=== PATIENT | female | born 1940 | race Caucasian/White ===

== ENCOUNTER 2017-01-06 17:49 | Emergency (ER) | payer MEDICARE, BC ==
[2017-01-06 18:01] VITALS: BP 119/77
--- OUTSIDE RECORDS SUMMARY | 2017-01-06 18:20 | XMS REPORT | Continuity of Care Document ---
:1940 Author Organization [facility] ([facility]) [place] [address] Phone [phone] Care Team Providers Name Role Phone Felipa Bustillo Primary Care Provider [phone] Source Comments This disclosure is being made pursuant to the Care Everywhere program, applicable federal and state laws, and may not contain all informaitonavailable regarding this patient.[facility] ([facility]) Active Allergies and Adverse Reactions No Known Allergies Current Medications Prescription Sig. Disp. Refills Start Date End Date Status verapamil 120 mg tablet Take 120 mg by Active mouth 3 times daily. levothyroxine 75 mcg Take 75 mcg by Active tablet mouth every morning before breakfast. Active Problems Problem Noted Date Breast cancer, left breast 10/18/2012 Social History Tobacco Use Types Packs/Day Years Used Date Never Assessed Last Filed Vital Signs Vital Sign Reading Time Taken Blood Pressure 162/95 10/14/2014 9:45 AM [employer] Pulse 74 10/14/2014 9:45 AM [employer] Temperature 36.9 C (98.4 F) 10/14/2014 9:45 AM [employer] Respiratory Rate 16 10/14/2014 9:45 AM [employer] Height - - Weight 91.173 kg (201 lb) 10/14/2014 9:45 AM [employer] Body Mass Index - - Oxygen Saturation 94% 10/14/2014 9:45 AM [employer] Plan of Care Health Maintenance Due Date Last Done Comments Hepatitis B Vaccine (1 of 3 - Primary Series) 1940 Tdap Vaccine 1953 Lipid Disorder Screening 1960 Td Vaccine 1960 Mammogram 1982 Colonoscopy 09/12/1992 Zoster Vaccine 2002 Osteoporosis Screening (DXA Bone Density) 2007 Pneumococcal Vaccine (1 of 2 - PCV13) 2007 Influenza Vaccine: Seasonal (#1) 05/31/2016 Results from Last 3 Months Not on file
[2017-01-06] MEDS ORDERED: DIPHTH,PERTUSS(ACELL),TET VAC 0.5 ML VIAL IM ONE ×2 (18:27→18:31)
--- NOTE | 2017-01-06 18:40 | ERNOTE ---
Medical Problem HPI - Narrative Date of Service: 01/06/17 - General Chief Complaint: Laceration Time Seen by Provider: 01/06/17 18:14 Source: patient Exam Limitations: no limitations - Immun/Allergies/Home Medications Immunizations: IMMUNIZATION HX History of Influenza Vaccine Yes Hx Pneumococcal Vaccination Yes Allergies/Adverse Reactions: Allergies codeine [Codeine] Allergy (Intermediate, Verified 01/06/17 18:01) itching morphine Allergy (Intermediate, Verified 01/06/17 18:01) Hives hydrocodone bitartrate [From Vicodin] Adverse Reaction (Intermediate, Verified 01/06/17 18:01) nightmares propoxyphene napsylate [From Darvocet-N 100] Adverse Reaction (Unknown, Verified 01/06/17 18:01) Nightmares Home Medications: HOME MEDICATIONS Tramadol HCl 50 mg PO BID PRN 11/06/12 [Last Taken 11/06/12 15:00 50mg] ALPRAZolam [Xanax] 0.25 mg PO Q6H PRN 05/20/14 [Last Taken Unknown] Levothyroxine Sodium [Synthroid] 25 mcg PO 0700 05/20/14 [Last Taken Unknown] Meloxicam 7.5 mg PO DAILY 05/20/14 [Last Taken Unknown] Metoprolol Tartrate [Lopressor] 25 mg PO DAILY 01/06/17 [Last Taken Unknown] - History of Present History Narrative: A 76-year-old female presented to the emergency room with a 2 cm laceration to the back of her left hand below her pinky and her ring finger knuckle. States she cut her hand and a food chopper. Date (Duration): 01/06/17 Timing: constant Severity: mild Modifying Factors - (Improves): Present: rest Modifying Factors - (Worsens): Present: movement Review of Systems - Review of Systems Constitutional: Present: no symptoms reported EYE: Present: no symptoms reported ENT: Present: no symptoms reported Respiratory: Present: no symptoms reported Cardiology: Present: no symptoms reported Gastrointestinal/Abdominal: Present: no symptoms reported Genitourinary: Present: no symptoms reported Musculoskeletal: Present: no symptoms reported Skin: Present: See HPI Neurological: Present: no symptoms reported Endocrine: Present: no symptoms reported Hematologic/Lymphatic: Present: no symptoms reported Psych: Present: no symptoms reported - Patient's Past Medical History Patient History - Medical: Anxiety Patient History - Cardiac/Respiratory: Hypertension, Hyperlipidemia, Myocardial Infarction Patient History - Cancer: Breast Patient History - Surgical Procedures: Cardiac stent, Hysterectomy, Total Knee Replacement Patient History - Other: None - Social History Living Situations: home Psych History: Hx of Anxiety Smoking Status: Former smoker - Immunizations Hx Pneumococcal Vaccination: Yes History of Influenza Vaccine: Yes Physical Exam - Physical Exam General Appearance: Present: wd/wn Ears, Nose, Throat: Present: normal ENT inspection Neck: Present: normal inspection Respiratory: Present: no respiratory distress Cardiovascular/Chest: Present: regular rate, rhythm Gastrointestinal/Abdominal: Present: normal bowel sounds Back Exam: Present: normal inspection Extremity Exam: Present: extremity edema - left arm/hand lymph edema, this is normal for patient. Neurological Exam: Present: oriented, normal mood/affect, no motor/sensory deficits Skin Exam: Present: normal color, warm/dry ED Progress - Vital Signs Patient's Vital Signs:: I have reviewed the patient's vital signs. Vital Signs: Vital Signs 01/06/17 17:54 Temperature 37.0 C Pulse Rate 67 Respiratory 14 Rate Blood Pressure 119/77 O2 Sat by Pulse 96 Oximetry - Progress/Reassessment Chief Complaint: Laceration Procedures Left Distal Hand I & D Prep: betadine prep Length of Repair/Wound (cm): 2 - cm Wound's Depth/Shape: superficial Wound Explored: clean Wound Repaired With: Dermabond Layer Closure: Simple Wound Dressing: sterile dressing applied Complications: Pt amrit procedure well Departure - Departure Clinical Impression: Laceration of hand without complication, excluding fingers Qualifiers: Encounter type: initial encounter Laterality: left Qualified Code(s): S61.412A - Laceration without foreign body of left hand, initial encounter Disposition: Home self-care Condition: Critical Instructions: Tissue Adhesive Wound Care, Laceration Care, Adult, [id number] Additional Instructions: continue home medications. Follow up with Primary care doctor in 3 days for follow up. Return if site starts to bleed or if new symptoms develop. Referrals: Felipa Bustillo MD [Primary Care Provider] -
== END 2017-01-06 18:40 | disposition home or self-care (01) ==
LOC: ER 17:49
PROC: 0HQGXZZ Repair Left Hand Skin, External Approach (ICD-10-PCS; principal; 2017-01-06)
DX: S61.412A Laceration without foreign body of left hand, initial encounter (principal); X58.XXXA Exposure to other specified factors, initial encounter; Y93.G3 Activity, cooking and baking; Y92.9 Unspecified place or not applicable; Y99.9 Unspecified external cause status; Z23 Encounter for immunization; Z85.3 Personal history of malignant neoplasm of breast; I10 Essential (primary) hypertension; F41.9 Anxiety disorder, unspecified